=== PATIENT | female | born 1965 | race Caucasian/White ===

== ENCOUNTER → 2016-12-03 | Outpatient (CLI) | payer OTHER ==
[~2016-12-03] MED LIST: EFFEXOR-XR37.5 MG PO; ESTRACE; ESTRACE0.5 MG PO; NEXIUM PO; PREVACID; PROTONIX20 MG PO; ZANTAC150 M1 PO
--- NOTE | ~2016-12-03 | MY11 ---
[facility] RADIOLOGY TEXT RESULTS PATIENT: MILE BONDS LOCATION: [facility] : 61 UNIT #: [id number] AGE: [address]: Su Paige MD SEX: F ORDER DR: [id number] [place] [id number] O MR#: [id number] Acc #: [id number] NAME: MILE BONDS : 1965 SEX: F STUDY DATE/TIME: 12/03/2016 11:15 UNIT: [facility] ROOM: STUDY DESCRIPTION: MY Mammogram Screening Dig [place] Attending Physician: Su Paige M.D. Referring Physician: Su Paige M.D. Ordering Physician: Su Paige M.D. Primary Care Physician: Su Paige M.D. MEDICAL IMAGING REPORT This report is preliminary unless electronic signature is present. EXAM Digital screening mammogram with CAD. INDICATION Routine screening. PROCEDURE Bilateral CC and MLO and CC and MLO implant-displaced views obtained on a digital mammography unit. FDA-approved CAD device utilized. COMPARISON 04/20/2014 FINDINGS Scattered fibroglandular density. There is no dominant mass or suspicious calcification. Bilateral subglandular silicone implants are intact. IMPRESSION Benign screening mammogram. Screening interval in 1 year suggested. Patients over the age of 40 are entered into a reminder system with target due date for the next mammogram. A result letter will also be sent to the patient. BIRADS: 2 Benign finding. Dictated by... Billy Barton M.D. THIS IS AN ELECTRONICALLY VERIFIED REPORT [facility] A Service [facility] RADIOLOGY TEXT RESULTS PATIENT: MILE BONDS LOCATION: [facility] : 61 UNIT #: [id number] AGE: [address]: Su Paige MD SEX: F ORDER DR: Billy Barton M.D. at 12/04/2016 7:17 AM JUSTIN/jessica TD: 12/03/2016 18:28 JOB #: [id number] MEDICAL IMAGING REPORT Page 1 of 1
== END | disposition home or self-care (01) ==
LOC: CMAM 11-21 11:00 → SMAM 10:31 → CMAM 11:00
DX: Z12.31 Encounter for screening mammogram for malignant neoplasm of breast (principal)
CPT/HCPCS: G0202